=== PATIENT | male | born 1945 | race Caucasian/White ===

== ENCOUNTER 2016-09-18 19:53 | Inpatient (IN) | payer MEDICARE, BC ==
[~2016-09-18] VITALS: Ht 177.8 cm; Wt 102.6 kg
--- NOTE | ~2016-09-18 | ECHO ---
Transthoracic Echocardiography Report (TTE) Demographics Patient Name SAMUEL BRENNER Date of Study 09/19/2016 Patient Number [id number] Visit Number [id number] Date of 1945 Room Number G6305 Gender Male Number Age 71 year(s) Referring Jeremy Dan Solutions Manager Andi Nava Physician Physician Interpreting Phyllis Mark MD Felt Carbonizer Physician Supervising Ordering Jeremy Dan MD/ANSHUL Physician Nurse Stress Environmental Research Project Manager Conclusions Contractility Score Summary Global Left Ventricular Hypokinesis was noted. Summary The estimated left ventricular ejection fraction is 45%. Mild concentric left ventricular hypertrophy. Diastolic assessment reveals Grade I diastolic dysfunction. The left atrium is mildly dilated by LA volume index measurement. Mild-moderate mitral regurgitation by color Doppler. The ascending aorta appears moderately dilated. The maximum diameter measures 3.8 cm. Procedure Type of Study TTE procedure:2D Echocardiogram, M-Mode, Doppler , Color Doppler. Procedure Date Date: 09/19/2016 Start: 08:30 AM Study Location: Inpatient Portable Technical Quality: Adequate visualization Indications:Post PTCA. Additional Indications:Post stent placement Appropriate Use Criteria: 9 Patient Status: Routine HR: 68 bpm BP: 149/97 mmHg Allergies - No known allergies. M-Mode/2D Measurements LV Diastolic Dimension: 5.4 cm LV Systolic Dimension: 3.56 cm LV Septum Diastolic: 1.18 cm LV PW Diastolic: 1.13 cm AO Root Dimension: 2.9 cm Cardiac Output: 4 l/min LA Dimension: 3.6 cm EF Estimated: 45 % LVOT: 2.2 cm LVOT VTI: 15.5 cm RV Base: 2.97 cm LV Stroke volume: 58.89 ml RV Length: 6.9 cm TAPSE: 2.65 cm TDI-S': 19.3 cm/s Doppler Measurements AV Peak Velocity: 1.1 m/s MV Peak E-Wave: 0.58 m/s AV Peak Gradient: 4.84 mmHg MV Peak A-Wave: 0.82 m/s AV Mean Gradient: 3 mmHg MV E/A Ratio: 0.71 LVOT Peak Velocity: 0.8 m/s MV P1/2t: 56 msec TR Gradient:18.84 mmHg PV Peak Velocity: 0.78 m/s Estimated RAP:8 mmHg PV Peak Gradient: 2.43 mmHg Estimated RVSP: 27 mmHg Estimated PASP: 26.84 mmHg E' Septal Velocity: 0.04 m/s A' Septal Velocity: 0.1 m/s E' Lateral Velocity: 0.05 m/s A' Lateral Velocity: 0.12 m/s Findings Left Ventricle The left ventricle is normal in size. Mild concentric left ventricular hypertrophy. Diastolic assessment reveals Grade I diastolic dysfunction. Anterior, septum and apex all show mild hypokinesis Right Ventricle Normal right ventricle structure and function. Left Atrium Normal left atrial size. Right Atrium Normal right atrial size. IVC measures 2.68 cm with inspiratory collapse. Mitral Valve Mild-moderate mitral regurgitation by color Doppler. Aortic Valve Normal aortic valve structure and function. Tricuspid Valve Mild tricuspid regurgitation by color Doppler. Pulmonic Valve Normal pulmonic valve structure and function. Pericardial Effusion No evidence of pericardial effusion. Miscellaneous The ascending aorta appears mildly dilated. The maximum diameter measures 3.8 cm. Pleural Effusion No evidence of pleural effusion. Contractility Score LV regional wall motion:(0-Non visualized 1-Normal 2-Hypokinesis 3-Akinesis 4-Dyskinesis 5-Aneurysm) Signature dtt: Jas Ferguson (cardio) dtd: 09/19/16 0830 Physician Self Edit
--- NOTE | ~2016-09-18 | CATH ---
Cardiac Diagnostic + PCI Report Demographics Patient Name ELIDIA Martin Gender Male Date of 1945 Age 71 year(s) Patient Number [id number] Date of Study 09/18/2016 Visit Number [id number] Room Number G6305 [place] [id number] Ht 175.26 cm Wt 101.3 kg Referring Primary Physician Physician Kimberly Min Secondary Physician Physician Ni GARCIA Diagnostic [facility] Assisting Physician Physician Ni GARCIA Interventional [facility] Physician Consulting Services Manager Physician Ni GARCIA Findings and Conclusions Diagnostic Findings and Conclusion Mid LAD 100% occluded with collaterals from RCA. Late presentation with anterior STEMI \E\R\E\ 24 hours since symptom onset. Patient had ongoing CP on NTG drip requiring taking patient to cardiac cath on emergent basis. Diagnostic Recommendations PCI of LAD. Interventional Findings and Conclusion s/p PCI of LAD with DEEDEE. Interventional Recommendations Patient will be observed overnight. Hydration and followup creatinine. Patient has been instructed to not lift anything more than 5 pounds for 1 week. Aggressive medical therapy for coronary artery disease. ASA. Statin. Beta Yang. Faustino Inhibitor. Dual Anti-platelet therapy. Cardiac diet . Optimization of medical therapy as an outpatient. Smoking Cessation teaching and counseling done . Referral to Cardiac Rehabilitation now and at discharge . Follow up visit in [address] Ferguson. Procedure Description The patient was brought to the diagnostic cardiac catheterization-EP laboratory in the fasting, non-sedated state. Informed consent was obtained in the verbal form after the risks and benefits were explained. The patient had no further questions and agreed to proceed. The planned puncture-incision site(s) were shaved and prepped with ChloraPrep and draped in the usual sterile manner. Conscious sedation, supplemental oxygen, and pain control medications were delivered by a registered nurse under physician guidance. Surface ECG rhythm, blood pressure measurement, and pulse oximetry were monitored throughout the procedure. Arterial access. The access site was infiltrated with lidocaine. The vessel was entered with the Seldinger technique. A sheath was advanced into the vessel and used for catheter placement. Selective left coronary angiography. A catheter was advanced into the left coronary vessel ostium under Fluoroscopic guidance. Contrast was injected by hand. Images were obtained in multiple projections. Selective right coronary angiography. A catheter was advanced into the right coronary vessel ostium under fluoroscopic guidance. Contrast was injected by hand. Images were obtained in multiple projections. Angioplasty and Stent Placement: A guiding catheter was used to intubate the vessel. A 0.14 wire was then used to cross the lesion. A balloon catheter was placed across the lesion and inflated. The balloon catheter was then removed. A Drug Eluting Stent was placed and inflated. Post placement angiograms were performed. Left heart catheterization. A catheter was advanced across the aortic valve to the left ventricle under fluoroscopic guidance. Resting hemodynamics were obtained. Arterial artery hemostasis was achieved. The patient was transferred to a regular nursing floor via cart accompanied by a nurse. The patient left the laboratory in stable condition. Diagnostic Cath Status: Emergency Interventional Cath Status: Emergency Procedure Procedure Type Diagnostic procedure:Angiography:, Coronary Angios w/[facility] PCI procedure:Drug Eluting Coronary Stent:, LAD Indications: Abnormal troponin and Chest pain. Angiographic Findings Dominance: Right Cardiac Arteries and Lesion Findings LMCA: Normal (0% Stenosis). LAD: Diagonal normal. Lesion on Mid LAD: Proximal subsection.100% stenosis 32 mm length reduced to 0%. Pre procedure DURAN 0 flow was noted. Post Procedure DURAN III flow was present. The guidewire cross was successful.The lesion was diagnosed as a high risk lesion.Culprit lesion. Treatment results:Interventional treatment was successful. Devices used - Runthrough NS .014 x 180. Number of passes: 1. - Emerge Balloon 2.5 x 12. 2 inflation(s) to a max pressure of: 12 luann. - Promus Premier 3.0 x 32 Stent. 2 inflation(s) to a max pressure of: 12 luann. Lesion on Prox LAD: 20% stenosis . LCx: OM normal. Lesion on Prox CX: 10% stenosis . RCA: PL normal. PDA normal. Lesion on Mid RCA: 10% stenosis . Ramus: Normal (0% Stenosis). Cardiac Collaterals - collateral flow from the Dist RCA to the Mid LAD. Coronary Tree Procedure Data Procedure Date Date: 09/18/2016Start: 08:35 PMEnd: 09:19 PM Entry Locations - Retrograde Percutaneous access was performed through the Right Radial artery (Primary location). A 5.5 Fr sheath was inserted. Hemostasis was successfully obtained using Mechanical Compression. Closure Comments: R band with 12 cc air deployed by RT. Caroline. Procedure Medications Order and Administration + + + + + !Time !Medication !Dosage !Route ! + + + + + !09/18/2016 08:34 !Versed !1 mg !I.V. ! !PM ! ! ! ! + + + + + !09/18/2016 08:35 !Fentanyl !50 mcg !I.V. ! !PM ! ! ! ! + + + + + !09/18/2016 08:41 !Radial Verapamil !2.5 mg !I.A. ! !PM ! ! ! ! + + + + + !09/18/2016 08:45 !0.9% NaCl !200 ml !I.V. bolus ! !PM ! ! ! ! + + + + + !09/18/2016 08:46 !Oxygen !4 l/min !NC ! !PM ! ! ! ! + + + + + !09/18/2016 08:48 !Angiomax (Bivalirudin) !80 mg !I.V. bolus ! !PM !(ACC_5) ! ! ! + + + + + !09/18/2016 08:50 !Angiomax (Bivalirudin) !1.75 mg/kg/hr!I.V. drip ! !PM !(ACC_5) ! ! ! + + + + + !09/18/2016 08:59 !Nitroglycerin ! !I.V. drip ! !PM ! ! ! ! + + + + + !09/18/2016 09:01 !Fentanyl !25 mcg !I.V. ! !PM ! ! ! ! + + + + + !09/18/2016 09:13 !Brilinta (Ticagrelor) !180 mg !P.O. ! !PM !(ACC_20) ! ! ! + + + + + Devices Used - A6 Fr. BS JR 4 Diag. Catheterwas used for:RCA Intervention. - A6 Fr. EBU 3.5 Guide Catheterwas used for:Left coronary angiography. Contrast Material - Isovue 36502 ml Fluoroscopy Time: Diagnostic: 9:54 minutes. Total: 9:54 minutes. Fluoroscopy Dose: Diagnostic: 1462 mGy. Total: 1462 mGy. Estimated Blood Loss: 15 ml. Additional [facility] PCI Information PCI Indication:PCI for STEMI (Unstable, >12 hrs from Sx onset). Medical History Performed Procedures and Imaging Results - No [facility] stress or imaging studies were performed. Allergies - No known allergies. Risk Factors The patient risk factors include:family history of premature CAD, last creatinine: 0.9 mg/dl, creatinine clearance: 110.99 ml/min and Current/Recent(w/in 1 year) tobacco use. Admission Data Admission Date: 09/18/2016 Admission Time: 07:53 PM Admit Source: [facility] care facility Insurance Payors: Medicare. Admission Medications + +------+-----+---------+---------+ + + !Medication !Dosage!Times!Last !Last !Administered !Comments ! ! ! !Per !Delivery !Delivery ! ! ! ! ! !Day !Date !Time ! ! ! + +------+-----+---------+---------+ + + !Nitrates (iv or! ! ! ! !Yes ! ! !buccal) ! ! ! ! ! ! ! + +------+-----+---------+---------+ + + !Statin (any) ! ! ! ! !Yes ! ! + +------+-----+---------+---------+ + + !Aspirin (any) ! ! ! ! !Yes ! ! + +------+-----+---------+---------+ + + !Unfractionated ! ! ! ! !Yes ! ! !Heparin (any) ! ! ! ! ! ! ! + +------+-----+---------+---------+ + + Clinical Evaluation Leading to Procedure - The patient's CAD presentation was assessed as: STEMI.The symptom onset was first noted on 09/17/2016 01:00 PM(time was estimated). - The patient's anginal syndrome during the past two weeks was assessed as: Class IV according to the [place] Cardiovascular Society Classification System (CCS). - The patient has been in a state of heart failure within the past two weeks. - The patient's heart failure status was assessed as NYHA Class II, with CHF symptoms of DALEY. Snapshots Hemodynamics Condition: Rest O2 Consumption: Estimated: 262.75Heart Rate: 85 bpm Pressures (mmHg) +-----+ + !Site !Pressure ! +-----+ + !AO !96/69 (82) ! +-----+ + !LV !103/2 ,8 ! +-----+ + !LV !108/-1 ,6 ! +-----+ + !AO !102/68 (85) ! +-----+ + !LV !106/0 ,4 ! +-----+ + !AO !/ (-11) ! +-----+ + !AO !105/75 (89) ! +-----+ + Valve Gradients and Areas + +---------+---------+---------+ +---------+ + !Valve !Peak !Mean !Area !Index !Flow !Source ! + +---------+---------+---------+ +---------+ + !Aortic !13 !7 ! ! ! ! ! + +---------+---------+---------+ +---------+ + !Aortic !13 !7 ! ! ! ! ! + +---------+---------+---------+ +---------+ + Shunts Oxygen Values O2 Capacity 240.72 O2 Consumption 262.75 Signatures dtt: NI MIN dtd: 09/18/162034 Physician Self Edit
--- NOTE | ~2016-09-18 | HP ---
PATIENT'S NAME: SAMUEL CORNELL [facility] AGE: 71 Y [address] ROOM: [address] [address] LOCATION: GPCU ADMIT DATE: 09/18/2016 History & Physical DISCHARGE DATE: FAMILY PHYSICIAN: PHYSICIAN, NO ATTENDING PHYSICIAN: BONI MIN DATE OF SERVICE: 09/18/2016 REFERRING PROVIDER: TYRONE Iverson. REASON FOR TRANSFER: Acute coronary syndrome. CHIEF COMPLAINT: Chest pain. 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 The patient reports he has been having chest discomfort for the past 24 hours or so. His chest paininitially began on 09/17/2016 in the afternoon, and he reports he was massaging his chest, and that really did not improve it, and later on, he took some pain pills for it, with mild relief. The pain was mostly located in the midsternum. It was the most severe yesterday, but, since it was persistent, he finally decided to come to the emergency room at [employer]. He also reports that the pain radiated to the shoulder as well as his neck. He also had associated shortness of breath. In [facility] ER, his troponin was elevated at 27, his CK-MB was 101, and CPK was 1129. He still continued to have mild chest discomfort there, for which nitro drip was started. I asked him to give 4 baby aspirin as well as heparin bolus and drip given the persistent symptoms and EKG findings of recent anterior infarct based on clinical presentation. There were also T-wave inversions in leads I and aVL with mild ST depressions in lead II. En route to [facility], he continued to have more chest pain, and nitro drip was increased to 10 mcg per minute. I decided to go ahead and activate the slab grinder at that time since he is having ongoing chest pain and likely recent anterior STEMI based on EKG and clinical presentation. On prior EKG in 2013, he did not have any Q-waves in the anterior leads, this is a new finding. PATIENT'S NAME: SAMUEL CORNELL [facility] AGE: 71 Y [address] ROOM: [address] [address] LOCATION: GPCU ADMIT DATE: 09/18/2016 History & Physical DISCHARGE DATE: FAMILY PHYSICIAN: PHYSICIAN, NO ATTENDING PHYSICIAN: BONI MIN He remained hemodynamically stable in the ER as well as during transfer. He did not have any fever, chills, recent illness, stroke-like symptoms. No changes in his vision, speech, strength. No other acute complaints since yesterday. He has been fairly active and did not have any chest discomfort prior to this episode. PAST MEDICAL AND SURGICAL HISTORY: He had a history of colon and prostate cancer and acid reflux; status post surgery in 2013, prostatectomy, done by Dr. Fong. MEDICATIONS: Omeprazole Zantac prn SOCIAL HISTORY: The patient smokes. He quit about 2 years ago but restarted again recently. The patient is and lives with his . FAMILY HISTORY: No premature FH of coronary artery disease or sudden cardiac . REVIEW OF SYSTEMS: A 10-point review of systems discussed with the patient, and pertinent positives and negatives mentioned in the history of presenting illness. PHYSICAL EXAMINATION: VITAL SIGNS: Heart rate 80s, blood pressure 140/90, O2 saturation 96% on 3 L of oxygen, afebrile, his O2 saturations En route were in the 90s, and so they had to increase the oxygen to 3 L. NECK: No JVD, supple. EYES: Sclerae white. No xanthelasmas. ENT: Naris normal. Mucous membranes moist. HEART: S1, S2. Regular rate and rhythm. No murmurs, gallops, or rubs. LUNGS: Clear to auscultation bilaterally. ABDOMEN: Obese. Bowel sounds positive. EXTREMITIES: Radial pulse 2+. Legs, no significant lower extremity edema. SKIN: Warm and dry. JOINTS: Able to move all extremities against gravity. No swelling or tenderness in the joints. NEURO: The patient is alert and oriented to time, place, and person. No apparent distress. PSYCH: Mood, normal. Normal affect. LABORATORY DATA: PATIENT'S NAME: SAMUEL CORNELL [facility] AGE: 71 Y [address] ROOM: [address] [address] LOCATION: GPCU ADMIT DATE: 09/18/2016 History & Physical DISCHARGE DATE: FAMILY PHYSICIAN: PHYSICIAN, NO ATTENDING PHYSICIAN: BONI MIN WBC 14.9, H and H are 17.1 and 51.1, platelets 207. Sodium 144, potassium 3.9, BUN 13, creatinine 0.93, GFR 81, albumin 4.3. AST 179, ALT 48, alkaline phosphatase is 107. INR is 1. Troponin 27.5, CK-MB 101, CPK is 1129. EKG: Normal sinus rhythm, with ST elevation in leads V1 to V3 with Q-waves. There are also some T-wave inversions in I and aVL as well as mild ST depression in lead II. IMPRESSION: 1. Anterior ST-elevation myocardial infarction, Recent. Symptom onset greater than 24 hours. Persistent chest pain, requiring to increase nitroglycerin drip to 10 mcgs/min and increasing oxygen to 3 L due to O2 sats in the 90s on 2 L of oxygen. 2. Gastroesophageal reflux disease. 3. Tobacco abuse. PLAN: At this time, given persistent chest discomfort as well as EKG findings, I think the best strategy is to take the patient to the cardiac slab grinder for emergent catheterization and possible intervention. It is well over 12 hours, and he is at this point not a candidate for thrombolytics, however, given ongoing symptoms of chest discomfort requiring nitroglycerin drip, we will proceed with cardiac cath and try to revascularize his LAD if possible. Based on EKG, this does appear to be a significant LAD occlusion. Risks and benefits discussed with the patient upon arrival, and he is agreeable to proceed with cardiac cath and possible intervention. He is a good candidate for dual-antiplatelet therapy. He does not have any upcoming surgeries. He does not have any contrast allergies. I counseled extensively against tobacco abuse. Dr. Ferguson will be resuming care in am. Thank you very much for allowing us to participate in the care of Mr. Cornell. We will continue to observe the patient and further plan after the cardiac cath. Echo in am. BONI MIN MD AT/modl PATIENT'S NAME: SAMUEL CORNELL [facility] AGE: 71 Y [address] ROOM: [place] [address] LOCATION: [facility] ADMIT DATE: 09/18/2016 History & Physical DISCHARGE DATE: FAMILY PHYSICIAN: PATRICK HUERTA ATTENDING PHYSICIAN: BONI MIN /[id number] D: T: [phone] HISTORY & PHYSICAL
[2016-09-18] MEDS ORDERED: PERCOCET 5-3251 EACH PO (22:20)
[2016-09-18] MEDS ORDERED: PRILOSEC20 MG PO (22:21)
[2016-09-18] MEDS ORDERED: ALKA-SELTZER E1 EACH PO (22:24)
--- NOTE | 2016-09-19 00:18 | NUR ---
THE PATIENT LIVES [place] [facility] [place] . HE STATED HE FELT "CHEST DISCOMFORT" FOR APPROXIMATELY 24 HOURS WHICH THEN BEGAN TO RADIATE TO HIS BACK/JAW/L&R FORARM. HE HAD AN MRI SCHEDULED FOR THAT AFTERNOON AND HE DID GO TO THIS PROCEDURE. AT THE MRI HE TOLD THE TECHS ABOUT HIS CHEST PAIN AND TO PUT A 3 LEAD ON HIM. THE TECHS THEN PROCEDED TO TAKE HIM TO THE ER. IN ER HE WAS STILL IN NO ACUTE DISTRESS. TROPONIN WAS ELEVATED AT 27.0. HE WAS THEN TRANSFERRED HERE AND WAS TAKEN TO ORCHESTRA DIRECTOR FOR A STEMI. ARIEL PERFORMED PROCEDURE (RIGHT RADIAL). LAD 100% OCCLUDED. STENT PLACED. ARRIVED ON FLOOR AT 2130 IN NO APPARENT DISTRESS. ANGIOMAX INFUSING, FINISHED 20 MINUTES LATER. NS AT 100 ML/HR X 1 BAG TO BE INFUSED. DENIED PAIN. NO PAST CARDIAC HISTORY. HX: GERD, CLON RESEC., WITH POST PROSTATE CA.
[2016-09-19 04:47] LABS: BASOPHIL % 0.4 %; EOSINOPHIL # 0.3 K/uL (0.0-0.5); EOSINOPHIL % 3.1 %; HEMATOCRIT 46.1 % (37.0-53.0); HEMOGLOBIN 15.6 g/dL (11.0-16.0); IMMATURE GRANULOCYTE % 0.2 %; LYMPHOCYTE # 2.4 K/uL (0.8-4.0); MCH 32.4 pg (27.0-34.0); MCHC 33.8 gm/dL (32.0-36.5); MCV 95.6 fl (83.0-98.0); MONOCYTE # 1.1 K/uL (0.0-1.0); MONOCYTE % 11.8 %; MPV 10.7 fl (9.4-12.4); NEUTROPHIL # (ANC) 5.4 K/uL (1.4-9.0); NEUTROPHIL % 58.5 %; NRBC % 0 /100WBC (0-0.00); PLATELET COUNT 162 K/uL (150-450); RBC 4.82 M/uL (3.50-5.50); RDW-CV 12.3 % (11.9-14.6); WBC 9.3 K/uL (4.0-11.0)
[2016-09-19 05:18] LABS: ALBUMIN 3.2 gm/dL (3.5-5.0); ALK PHOS 96 IU/L (33-138); ALT 38 IU/L (12-78); BLOOD UREA NITROGEN 14 mg/dL (6-24); CALCIUM 8.4 mg/dL (8.5-10.5); CHLORIDE 110 mMol/L (96-110); CO2 22 mMol/L (22-32); ESTIMATED GFR (MDRD EQUATION) > 60; SODIUM 143 mMol/L (135-145); TOTAL BILIRUBIN 1.2 mg/dL (0.0-1.5); TOTAL PROTEIN 5.9 g/dL (6.0-8.4)
[2016-09-19 05:19] LABS: ANION GAP 14.6 (10.0-19.0); AST 140 IU/L (10-40); POTASSIUM 3.6 mMol/L (3.7-5.1)
--- NOTE | 2016-09-19 05:55 | NUR ---
Significant Event: A/0 X 3. AMBULTES STAND BY ASSIST. SBP 1'TEENS TO 150'S. HR IN THE 70-80'S, DID HAVE A 4 AND 12 BEAT RUN V-TACH. WAS ASYMTPTOMATIC. AFTER A WHILE COMPLAINED OF SOB THEREFORE 2L WAS KEPT ON AND NOT TITRTED DOWN. STENT WAS PLACED BY ARIEL FOR 100% OCCLUDED LAD. AROUND 0400 COMPAINED OF SOME MILD CHEST DISCOMFORT, 2 MG MORPHINE GIVEN AND EKG PERFORMED, REASSESSMENT STILL SAID HAD SOME VERY MILD DISCOMFORT, SBP WAS UP TO 150'S, GAVE 1 SL NITRO AND AFTER A FEW MINUTES THE PATIENT WAS ASLEEP. WILL HAVE ECHO THIS AM. PUT ON BENNY'S LIST. Follow up:
--- NOTE | 2016-09-19 11:17 | NUR ---
Introduced self and role of care management to patient and . They live in [place]. He states that he is able to do all his own ADL's. His wfie states she is able to assist as needed. 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 He plans on returning home on discharge. He denies any needs at this time. Will continue to follow.
--- NOTE | 2016-09-19 13:23 | NUR ---
CONSULT RECEIVED FOR CARDIAC DIET ED. WILL PROVIDE DIET ED PRIOR TO DC.
--- NOTE | 2016-09-19 16:48 | NUR ---
Significant Event: A/OX3, VSS ON ROOM AIR. PT. GETS UP SELF IN ROOM, WALKED HALLWAYS TODAY WITH CARDIAC REHAB. NO COMPLAINTS OF PAIN, JUST FEELS SOB AT TIMES WHEN FALLING ASLEEP, TOLD HIM THIS COULD BE A SIDE EFFECT FROM HIS [place], PT. STATES, "IT GETTING A LITTLE BETTER." HERE WITH PT. R)RADIAL CATH SITE DRESSING IS C/D/I, NO DRAINAGE OR HEMATOMA NOTED. GAVE 30meq OF PO KCL TODAY FOR K+ LEVEL OF 3.6. POSSIBLE D/C TO HOME TOMORROW. LABS IN AM. CARDIAC ENZYMES TRENDING DOWN. STILL WAITING RESULTS OF ECHO. Follow up: CONTINUE WITH POC.
--- NOTE | 2016-09-20 04:04 | NUR ---
Significant event: Patient A/O x 3. Up in room and hallway with SBA. Right wrist cath site WNL has bandaid in place and is C/D/I. Cooperative with all cares VSS.
[2016-09-20 04:59] LABS: ALBUMIN 3.2 gm/dL (3.5-5.0); ANION GAP 13.9 (10.0-19.0); BLOOD UREA NITROGEN 19 mg/dL (6-24); CALCIUM 8.8 mg/dL (8.5-10.5); CHLORIDE 111 mMol/L (96-110); CO2 23 mMol/L (22-32); ESTIMATED GFR (MDRD EQUATION) > 60; MAGNESIUM 2.1 mg/dL (1.3-2.6); PHOSPHORUS 3.2 mg/dL (2.5-4.9); POTASSIUM 3.9 mMol/L (3.7-5.1); SODIUM 144 mMol/L (135-145)
[2016-09-20] MEDS ORDERED: LIPITOR80 MG PO (09:14)
[2016-09-20] MEDS ORDERED: ASPIR 8181 MG PO (09:14)
[2016-09-20] MEDS ORDERED: VASOTEC2.5 MG PO (09:16)
[2016-09-20] MEDS ORDERED: BRILINTA90 MG PO (09:18)
[2016-09-20] MEDS ORDERED: NITROSTAT0.4 MG SL (09:18)
--- NOTE | 2016-09-20 11:54 | NUR ---
SPOKE W/ PT AND SPOUSE RE: CARDIAC DIET ED. DISCUSSED LIMITING SODIUM AND FAT INTAKE. PT USES SALT FREQUENTLY. DISCUSSED WAYS TO DECREASE SALT CONSUMPTION. PROVIDED WRITTEN DIET ED AND RD CONTACT INFO. WILL ASSIST NEEDED.
--- NOTE | 2016-09-20 12:09 | NUR ---
PATIENT IS A/OX3, VSS ON ROOM AIR. UP AD CARLOS IN ROOM & HALLWAYS. WALKED WITH CARDIAC REHAB TODAY. NO COMPLAINTS OF PAIN NOTED THIS SHIFT. RIGHT RADIAL CATH BAND-AID DRESSING CHANGED AFTER SHOWER. BILATERAL IV'S REMOVED FROM HANDS WITHOUT COMPLICATIONS. DISMISSAL INSTRUCTIONS, POST CATH, NEW MEDICATIONS GONE OVER WITH & PATIENT, NO FURTHER QUESTIONS AT THIS TIME. ALL BELONGINGS SENT HOME WITH PATIENT.
== END 2016-09-20 12:16 | disposition disaster alternative care site (69) | DRG 247 ==
LOC: GPCU 19:53
PROVIDERS: Internal Medicine Interventional Cardiology; ADMIT Internal Medicine Interventional Cardiology
PROC: 027034Z Dilation of Coronary Artery, One Artery with Drug-eluting Intraluminal Device, Percutaneous Approach (ICD-10-PCS; principal; 2016-09-18)
PROC: 4A023N7 Measurement of Cardiac Sampling and Pressure, Left Heart, Percutaneous Approach (ICD-10-PCS; principal; 2016-09-18)
PROC: B2111ZZ Fluoroscopy of Multiple Coronary Arteries using Low Osmolar Contrast (ICD-10-PCS; principal; 2016-09-18)
DX: I21.02 ST elevation (STEMI) myocardial infarction involving left anterior descending coronary artery (principal); E78.5 Hyperlipidemia, unspecified; I25.10 Atherosclerotic heart disease of native coronary artery without angina pectoris; E87.6 Hypokalemia; K21.9 Gastro-esophageal reflux disease without esophagitis; Z79.02 Long term (current) use of antithrombotics/antiplatelets; Z85.038 Personal history of other malignant neoplasm of large intestine; Z85.46 Personal history of malignant neoplasm of prostate; Z72.0 Tobacco use
CPT/HCPCS: C1725; C1769; C1874; C1887; C9606; J0583; J1644; J2250; J2270; J2370; J3010; J7030; J7060

== ENCOUNTER → 2016-09-18 | Outpatient (CLI) | payer MEDICARE, BC ==
[~2016-09-18] MED LIST: ALKA-SELTZER E1 EACH PO; ASPIR 8181 MG PO; BRILINTA90 MG PO; LIPITOR80 MG PO; NITROSTAT0.4 MG SL; PERCOCET 5-3251 EACH PO; PRILOSEC20 MG PO; VASOTEC2.5 MG PO
== END | disposition disaster alternative care site (69) ==
LOC: GAMB 18:42
DX: R07.9 Chest pain, unspecified (principal); M19.90 Unspecified osteoarthritis, unspecified site; R07.89 Other chest pain; R00.0 Tachycardia, unspecified; Z85.038 Personal history of other malignant neoplasm of large intestine; Z85.46 Personal history of malignant neoplasm of prostate; Z79.899 Other long term (current) drug therapy
CPT/HCPCS: A0422; A0425; A0426